=== PATIENT | female | born 1990 | race Caucasian/White ===

== ENCOUNTER 2017-01-26 16:38 | Emergency (ER) | payer SELFPAY ==
[~2017-01-26] VITALS: Ht 165.1 cm; Wt 113.9 kg
[~2017-01-26 16:38] MED LIST: MOTRIN; NAPH15SO
--- NOTE | 2017-01-26 17:28 | NUR ---
PATIENT PRESENTS TO ED WITH C/O LOWER BACK PAIN RADIATING TO LUQ SINCE THIS MORNING;DENIES ANY TRAUMA /INJURY HX: CHOLECYSTECTOMY RX:NONE . DENIES N/V/D; SKIN IS PINK/WARM/DRY; AAOX4 WITH EVEN AND STEADY GAIT; LUNGS CLEAR BL; HR EVEN AND REGULAR; PT DENIES ANY FEVER, CP, SOB, OR COUGH AT THIS TIME; PATIENT STATES PAIN OF 10/10 AT THIS TIME; VSS; PATIENT POSITIONED FOR COMFORT; HOB ELEVATED; BEDRAILS UP X2; BED DOWN. ER MD MADE AWARE OF PT STATUS.
--- NOTE | 2017-01-26 17:31 | NUR ---
DR TUTTLE EVALUATING AAO PT AT BEDSIDE
[2017-01-26] MEDS ORDERED: METHOCARBAMOL 500 MG TAB PO SCH (17:35)
[2017-01-26] MEDS ORDERED: KETOROLAC 60 MG/2 ML VIAL IM ONE (17:35)
[2017-01-26 18:05] VITALS: BP 121/61
== END 2017-01-26 18:05 | disposition home or self-care (01) ==
LOC: MED 16:38
DX: M54.5 Low back pain (principal); Z79.899 Other long term (current) drug therapy
CPT/HCPCS: 81002; 81025; 96372; 99283; J1885